=== PATIENT | female | born 1980 | race African-American/Black ===

== ENCOUNTER 2021-01-08 01:57 | Emergency (ER) | payer MEDICAID, OTHER ==
[~2021-01-08] VITALS: Ht 157.5 cm; Wt 84.0 kg
[2021-01-08 02:30] LABS: CLARITY URINE CLOUDY (CLEAR); COLOR URINE YELLOW (YELLOW); KETONES URINE NEGATIVE (NEGATIVE); LEUKOCYTE ESTERASE URINE 3+ (NEGATIVE); NITRITE URINE NEGATIVE (NEGATIVE); OCCULT BLOOD URINE 2+ (NEGATIVE); PH URINE 5.5 (4.5-8.0); PROTEIN URINE 1+ (NEGATIVE); SPECIFIC GRAVITY URINE 1.014 (1.005-1.030)
[2021-01-08] MEDS ORDERED: SODIUM CHLORIDE 0.9% 1,000 ML IV ONE ×2 (03:45→05:15)
[2021-01-08] MEDS ORDERED: CEFTRIAXONE 1 G PREMIX 50 ML IV ONE (04:00)
[2021-01-08 04:32] LABS: BASOPHILS % 0.8 % (0.0-2.0); EOSINOPHILS % 1.2 % (0.0-5.0); HEMATOCRIT. 45.9 % (36.0-48.0); MEAN CORPUSCULAR HEMOGLOBIN 28.5 pg (28.0-32.0); MEAN CORPUSCULAR VOLUME 87.1 fL (81.0-99.0); MEAN PLATELET VOLUME 7.5 fl (7.4-10.4); MONOCYTES % 5.5 % (2.0-8.0); NEUTROPHILS % 64.5 % (40.0-76.0); PLATELET 426 x1000/uL (130-400); RED BLOOD CELL COUNT 5.27 mill/uL (4.2-5.4); RED CELL DISTRIBUTION WIDTH 14.4 % (11.6-14.6)
[2021-01-08 04:40] LABS: CHLORIDE 104 mEq/L (98-107)
[2021-01-08 04:43] LABS: HCG SCREEN NEGATIVE
[2021-01-08 04:44] LABS: D-DIMER 0.39 mg/L FEU (<0.50); ETHANOL BLOOD < 10 mg/dL; PROTHROMBIN TIME 11.1 sec (9.6-11.0)
[2021-01-08] MEDS ORDERED: LORAZEPAM 2MG/ML CPJ IV ONE (05:15)
[2021-01-08] MEDS ORDERED: CEPH500C2 MT (05:25)
[2021-01-08] MEDS ORDERED: DOXY100C2 MT (05:35)
[2021-01-08 05:43] LABS: *BARBITURATES SCREEN URINE NEGATIVE (NEGATIVE); *BENZODIAZEPINES SCREEN URINE NEGATIVE (NEGATIVE); *COCAINE SCREEN URINE NEGATIVE (NEGATIVE); METHADONE URINE SCREEN NEGATIVE (NEGATIVE); OPIATES URINE SCREEN NEGATIVE (NEGATIVE); PHENCYCLIDINE URINE SCREEN NEGATIVE (NEGATIVE)
[2021-01-08 05:44] LABS: CANNABINOID URINE SCREEN NEGATIVE (NEGATIVE)
[2021-01-08 05:49] LABS: *AMPHETAMINES SCREEN URINE PRESUMTIVE POSITIVE (NEGATIVE)
[2021-01-08 10:30] VITALS: BP 119/73
[2021-01-11 08:08] LABS: NEISSERIA GONORRHOEAE NAA Negative (Negative)
== END 2021-01-08 10:55 | disposition home or self-care (01) ==
LOC: ER 01:57
DX: N39.0 Urinary tract infection, site not specified (principal); J45.909 Unspecified asthma, uncomplicated
CPT/HCPCS: 36415; 71045; 80053; 80305; 80320; 81003; 81025; 83605; 83690; 83880; 84443; 84484; 84703; 85025; 85379; 85610; 87040; 87210; 87491; 87591; 93005; 96361; 96365; 96375; 99285; J0696; J2060; J7030; Z7610; G0480

== ENCOUNTER 2021-04-13 15:38 | Emergency (ER) | payer MEDICAID, OTHER ==
[~2021-04-13] VITALS: Ht 154.9 cm; Wt 89.0 kg
[~2021-04-13 15:38] MED LIST: CEPH500C2 MT; DOXY100C2 MT
[2021-04-13 16:01] LABS: CLARITY URINE CLOUDY (CLEAR); COLOR URINE YELLOW (YELLOW); KETONES URINE NEGATIVE (NEGATIVE); LEUKOCYTE ESTERASE URINE 3+ (NEGATIVE); NITRITE URINE NEGATIVE (NEGATIVE); OCCULT BLOOD URINE NEGATIVE (NEGATIVE); PH URINE 5.5 (4.5-8.0); PROTEIN URINE NEGATIVE (NEGATIVE); SPECIFIC GRAVITY URINE 1.018 (1.005-1.030); UROBILINOGEN URINE 0.2 E.U./dL (0.2-1.0)
[2021-04-13 16:13] VITALS: BP 120/75
[2021-04-13] MEDS ORDERED: NITR100C MT (16:53)
== END 2021-04-13 17:23 | disposition home or self-care (01) ==
LOC: ER 15:38
DX: N39.0 Urinary tract infection, site not specified (principal); J45.909 Unspecified asthma, uncomplicated
CPT/HCPCS: 81003; 81025; 99283